=== PATIENT | female | born 1990 | race American Indian/Alaskan Native ===

== ENCOUNTER 2016-09-19 21:00 | Inpatient (IN) | payer MEDICAID, SELFPAY ==
[2016-09-19] MEDS ORDERED: Sodium Chloride 0.9% 1,000 ML IV ONE (22:06)
[2016-09-19 22:48] LABS: CHLORIDE,CL 86 mmol/L (101-111)
[2016-09-19 22:51] LABS: SODIUM,NA 118 mmol/L (135-145)
[2016-09-19] MEDS ORDERED: Potassium Chloride 10 MEQ in Premix Bag 1 BAG IV ONE (22:54)
[2016-09-19] MEDS ORDERED: Iopamidol 612 MG/ML 100 ML Bottle IVPUSH ONE (23:06)
--- NOTE | 2016-09-19 23:57 | EDM.PDOC ---
ED HPI GENERAL MEDICAL PROBLEM - General Chief Complaint: Drug or Alcohol Abuse Stated Complaint: AMB Time Seen by Provider: 09/19/16 21:10 Source of Information: Reports: EMS History Limitations: Reports: Altered Mental Status - History of Present Illness INITIAL COMMENTS - FREE TEXT/NARRATIVE: ED via [facility] from [facility] with confusion,hearing and smelling things, NVD. Facility questioned "heat stroke" as patient out walking around most of afternoon, Patient awake but offers not history. Minimal hx available from guardian or facility. Previous records note remote head injury. Facility records note OCD, psychosis and anxiety. - Related Data Allergies Allergy/AdvReac Type Severity Reaction Status Date / Time No Known Allergies Allergy Verified 09/19/16 21:04 Home Meds: Home Meds Clindamycin Phosphate 1 each TP BID 09/19/16 [History] Doxycycline [Vibramycin] 100 mg PO QAM 09/19/16 [History] FLUoxetine [PROzac] 10 mg PO DAILY 09/19/16 [History] FLUoxetine [PROzac] 20 mg PO DAILY 09/19/16 [History] Lurasidone [Latuda] 1 tab PO DAILY 09/19/16 [History] Melatonin 9 mg PO BEDTIME 09/19/16 [History] Multivitamin [Multivitamins] 1 each PO DAILY 09/19/16 [History] risperiDONE Microspheres [RisperiDAL Consta] 50 mg IM ASDIRECTED 09/19/16 [ History] Past Medical History HEENT History: Reports: Impaired Vision Psychiatric History: Reports: Anxiety - History Comment History Comment: learning disabilities Social & Family History - Family History Family Medical History: Unobtainable - Tobacco Use Smoking Status *Q: Unknown Ever Smoked Years of Tobacco use: 8 - Alcohol Use Days Per Week of Alcohol Use: 0 - Recreational Drug Use Recreational Drug Use: No ED ROS GENERAL - Review of Systems Review Of Systems: Unable To Obtain - Physical Exam Exam: See Below Exam Limited By: No Limitations General Appearance: Alert, Mild Distress Eye Exam: Bilateral Eye: PERRL Ears: Normal External Exam, Normal TMs Nose: Normal Inspection Throat/Mouth: Normal Inspection Head Exam: Atraumatic, Normocephalic Neck: Normal Inspection, Full Range of Motion Respiratory/Chest: No Respiratory Distress, Lungs Clear Cardiovascular: Normal Peripheral Pulses, Regular Rate, Rhythm GI/Abdominal: Normal Bowel Sounds, Soft, Tender (diffuse with palpation), Other (emesis clear liquid with few bloody mucus streaks) Neuro Exam (Abbreviated): Alert, Other (minimal verbal response, follow simple commands) Back Exam: Normal Inspection Extremities: Normal Inspection Psychiatric: Flat Affect Skin Exam: Warm, Dry, Intact, Normal Color Course - Vital Signs Last Recorded V/S: Last Vital Signs Temp 97.7 F 09/19/16 21:06 Pulse 82 09/19/16 21:06 Resp 18 09/19/16 21:06 BP 115/61 09/19/16 21:06 Pulse Ox 100 09/19/16 21:06 - Orders/Labs/Meds Orders: Active Orders 24 hr Category Date Time Status EKG 12 Lead [EKG Documentation Completion] [RC] URGENT Care 09/19/16 22:55 Active Labs: Laboratory Tests 09/19/16 09/19/16 09/19/16 Range/Units 22:10 22:10 22:10 WBC (5.0-10.0) 10^3/uL RBC (4.2-5.4) 10^6/uL Hgb (12.0-16.0) g/dL Hct (37.0-47.0) % MCV (80-100) fL MCH (27.0-34.0) pg MCHC (33.0-35.0) g/dL Plt Count (150-450) 10^3/uL Sodium (135-145) mmol/L Potassium (3.6-5.0) mmol/L Chloride (101-111) mmol/L Carbon Dioxide (21.0-31.0) mmol/L Anion Gap BUN (7-18) mg/dL Creatinine (0.6-1.3) mg/dL Est Cr Clr Drug Dosing Estimated GFR (MDRD) BUN/Creatinine Ratio Glucose (74-105) mg/dL Calcium (8.4-10.2) mg/dl Total Bilirubin (0.2-1.0) mg/dL AST (10-42) IU/L ALT (10-60) IU/L Alkaline Phosphatase (42-121) IU/L C-Reactive Protein (0.0-1.3) mg/dL Total Protein (6.7-8.2) g/dl Albumin (3.2-5.5) g/dl Globulin Albumin/Globulin Ratio Amylase (28-100) U/L Lipase (22-51) U/L Urine Color Yellow (YELLOW) Urine Appearance Clear (CLEAR) Urine pH 6.5 (5.0-9.0) Ur Specific [place] 1.010 (1.005-1.030) Urine Protein Negative (NEGATIVE) Urine Glucose (UA) Negative (NEGATIVE) Urine Ketones 40 H (NEGATIVE) Urine Occult Blood Trace-intact H (NEGATIVE) Urine Nitrite Negative (NEGATIVE) Urine Bilirubin Negative (NEGATIVE) Urine Urobilinogen 0.2 (0.2-1.0) mg/dL Ur Leukocyte Esterase Negative (NEGATIVE) Urine RBC 0-5 /HPF Urine WBC 0-5 (0-5/HPF) /HPF Ur Epithelial Cells Few /HPF Urine Bacteria Occasional (0-FEW/HPF) /HPF Urine HCG, Qual Negative Urine Opiates Screen Negative (NEGATIVE) Ur Oxycodone Screen Negative (NEGATIVE) Urine Methadone Screen Negative (NEGATIVE) Ur Barbiturates Screen Negative (NEGATIVE) U Tricyclic Antidepress Negative (NEGATIVE) Ur Phencyclidine Scrn Negative (NEGATIVE) Ur Amphetamine Screen Negative (NEGATIVE) U Methamphetamines Scrn Negative (NEGATIVE) Urine MDMA Screen Negative (NEGATIVE) U Benzodiazepines Scrn Negative (NEGATIVE) Urine Cocaine Screen Negative (NEGATIVE) U Marijuana (THC) Screen Negative (NEGATIVE) Ethyl Alcohol mg/dL 09/19/16 09/19/16 09/19/16 Range/Units 22:22 22:22 22:22 WBC 12.9 H (5.0-10.0) 10^3/uL RBC 3.87 L (4.2-5.4) 10^6/uL Hgb 11.9 L (12.0-16.0) g/dL Hct 34.0 L (37.0-47.0) % MCV 87.9 (80-100) fL MCH 30.7 (27.0-34.0) pg MCHC 35.0 (33.0-35.0) g/dL Plt Count 296 (150-450) 10^3/uL Sodium 118 L* (135-145) mmol/L Potassium 2.5 L (3.6-5.0) mmol/L Chloride 86 L (101-111) mmol/L Carbon Dioxide 20.0 L (21.0-31.0) mmol/L Anion Gap 14.5 BUN 5 L (7-18) mg/dL Creatinine 0.6 (0.6-1.3) mg/dL Est Cr Clr Drug Dosing TNP Estimated GFR (MDRD) > 60 BUN/Creatinine Ratio 8.33 Glucose 136 H (74-105) mg/dL Calcium 7.9 L (8.4-10.2) mg/dl Total Bilirubin 0.6 (0.2-1.0) mg/dL AST 22 (10-42) IU/L ALT 20 (10-60) IU/L Alkaline Phosphatase 96 (42-121) IU/L C-Reactive Protein 0.6 (0.0-1.3) mg/dL Total Protein 6.9 (6.7-8.2) g/dl Albumin 4.0 (3.2-5.5) g/dl Globulin 2.9 Albumin/Globulin Ratio 1.38 Amylase 36 (28-100) U/L Lipase 18 L (22-51) U/L Urine Color (YELLOW) Urine Appearance (CLEAR) Urine pH (5.0-9.0) Ur Specific [place] (1.005-1.030) Urine Protein (NEGATIVE) Urine Glucose (UA) (NEGATIVE) Urine Ketones (NEGATIVE) Urine Occult Blood (NEGATIVE) Urine Nitrite (NEGATIVE) Urine Bilirubin (NEGATIVE) Urine Urobilinogen (0.2-1.0) mg/dL Ur Leukocyte Esterase (NEGATIVE) Urine RBC /HPF Urine WBC (0-5/HPF) /HPF Ur Epithelial Cells /HPF Urine Bacteria (0-FEW/HPF) /HPF Urine HCG, Qual Urine Opiates Screen (NEGATIVE) Ur Oxycodone Screen (NEGATIVE) Urine Methadone Screen (NEGATIVE) Ur Barbiturates Screen (NEGATIVE) U Tricyclic Antidepress (NEGATIVE) Ur Phencyclidine Scrn (NEGATIVE) Ur Amphetamine Screen (NEGATIVE) U Methamphetamines Scrn (NEGATIVE) Urine MDMA Screen (NEGATIVE) U Benzodiazepines Scrn (NEGATIVE) Urine Cocaine Screen (NEGATIVE) U Marijuana (THC) Screen (NEGATIVE) Ethyl Alcohol mg/dL 09/19/ Range/Units 22:22 WBC (5.0-10.0) 10^3/uL RBC (4.2-5.4) 10^6/uL Hgb (12.0-16.0) g/dL Hct (37.0-47.0) % MCV (80-100) fL MCH (27.0-34.0) pg MCHC (33.0-35.0) g/dL Plt Count (150-450) 10^3/uL Sodium (135-145) mmol/L Potassium (3.6-5.0) mmol/L Chloride (101-111) mmol/L Carbon Dioxide (21.0-31.0) mmol/L Anion Gap BUN (7-18) mg/dL Creatinine (0.6-1.3) mg/dL Est Cr Clr Drug Dosing Estimated GFR (MDRD) BUN/Creatinine Ratio Glucose (74-105) mg/dL Calcium (8.4-10.2) mg/dl Total Bilirubin (0.2-1.0) mg/dL AST (10-42) IU/L ALT (10-60) IU/L Alkaline Phosphatase (42-121) IU/L C-Reactive Protein (0.0-1.3) mg/dL Total Protein (6.7-8.2) g/dl Albumin (3.2-5.5) g/dl Globulin Albumin/Globulin Ratio Amylase (28-100) U/L Lipase (22-51) U/L Urine Color (YELLOW) Urine Appearance (CLEAR) Urine pH (5.0-9.0) Ur Specific [place] (1.005-1.030) Urine Protein (NEGATIVE) Urine Glucose (UA) (NEGATIVE) Urine Ketones (NEGATIVE) Urine Occult Blood (NEGATIVE) Urine Nitrite (NEGATIVE) Urine Bilirubin (NEGATIVE) Urine Urobilinogen (0.2-1.0) mg/dL Ur Leukocyte Esterase (NEGATIVE) Urine RBC /HPF Urine WBC (0-5/HPF) /HPF Ur Epithelial Cells /HPF Urine Bacteria (0-FEW/HPF) /HPF Urine HCG, Qual Urine Opiates Screen (NEGATIVE) Ur Oxycodone Screen (NEGATIVE) Urine Methadone Screen (NEGATIVE) Ur Barbiturates Screen (NEGATIVE) U Tricyclic Antidepress (NEGATIVE) Ur Phencyclidine Scrn (NEGATIVE) Ur Amphetamine Screen (NEGATIVE) U Methamphetamines Scrn (NEGATIVE) Urine MDMA Screen (NEGATIVE) U Benzodiazepines Scrn (NEGATIVE) Urine Cocaine Screen (NEGATIVE) U Marijuana (THC) Screen (NEGATIVE) Ethyl Alcohol < 5 mg/dL Meds: Medications Discontinued Medications Generic Name Dose Route Start Last Admin Trade Name Freq PRN Reason Stop Dose Admin Sodium Chloride 1,000 mls @ 999 mls/hr 09/19/16 22:06 09/19/16 22:29 Normal Saline IV 09/19/16 23:06 999 mls/hr .BOLUS ONE Administration Potassium Chloride 10 meq/ 100 mls @ 100 mls/hr 09/19/16 22:54 09/19/16 23:12 Premix IV 09/19/16 23:53 100 mls/hr ONETIME ONE Administration Iopamidol 100 ml 09/19/16 23:06 09/19/16 23:41 Isovue-300 (61%) IVPUSH 09/19/16 23:07 100 ml ONETIME ONE Administration - Radiology Interpretation Free Text/Narrative:: CT abdomen and head negative - Re-Assessments/Exams Free Text/Narrative Re-Assessment/Exam: 09/20/16 00:53 Dr. Hillman admit for further eval Departure - Departure Time of Disposition: 01:07 Disposition: Admitted As Inpatient 66 Condition: fair, undetermined Clinical Impression: Hyponatremia, Hypokalemia, History of mental problems, Hx of psychosis Altered mental status Qualifiers: Altered mental status type: disorientation Qualified Code(s): R41.0 - Disorientation, unspecified - Discharge Information Forms: ED Department Discharge - My Orders Last 24 Hours: My Active Orders 09/19/16 22:55 EKG 12 Lead [EKG Documentation Completion] [RC] URGENT - Assessment/Plan Last 24 Hours: My Active Orders 09/19/16 22:55 EKG 12 Lead [EKG Documentation Completion] [RC] URGENT
[2016-09-20] MEDS ORDERED: Potassium Chloride 10 MEQ in Premix Bag 1 BAG IV ONE (00:46)
[2016-09-20] MEDS ORDERED: Zolpidem 5 MG Tab PO PRN (01:37)
[2016-09-20] MEDS ORDERED: Pantoprazole 40 MG Vial IVPUSH ONE (01:37)
[2016-09-20] MEDS ORDERED: Ondansetron 4 MG/2 ML SDV IVPUSH PRN (01:37)
[2016-09-20] MEDS ORDERED: Morphine 2 MG/ML Syringe IVPUSH PRN (01:37)
[2016-09-20] MEDS ORDERED: LORazepam 2 MG/ML Syringe IVPUSH PRN ×2 (01:37→19:56)
[2016-09-20] MEDS ORDERED: Promethazine 25 MG/ML SDV IM PRN (01:37)
[2016-09-20] MEDS: Sodium Chloride 0.9% 1,000 ML IV SCH ×3 (02:34→17:55)
[2016-09-20] MEDS: Potassium Chloride 10 MEQ in Premix Bag 1 BAG IV SCH ×4 (02:34→05:59)
[2016-09-20 07:02] LABS: CHLORIDE,CL 106 mmol/L (101-111); SODIUM,NA 134 mmol/L (135-145)
[2016-09-20] MEDS ORDERED: Sodium Chloride 0.9% 1,000 ML IV ONE (10:37)
[2016-09-20] MEDS: FLUoxetine 10 MG Cap PO SCH ×2 (11:20)
[2016-09-20] MEDS: CLINDAMYCIN PHOSPHATE TOP SCH ×2 (11:21→21:14)
[2016-09-20] MEDS: Doxycycline 100 MG Cap PO SCH (11:21)
[2016-09-20] MEDS: Enoxaparin 40 MG/0.4 ML Syringe SUBCUT SCH (11:21)
[2016-09-20] MEDS: Acetaminophen 325 MG Tab PO PRN ×2 (11:27→18:09)
--- NOTE | 2016-09-20 11:27 | PCM.HP ---
H&P History of Present Illness - General Date of Service: 09/20/16 Admit Problem/Dx: Admission Diagnosis/Problem Admission Diagnosis/Problem Vomiting Source of Information: Patient History Limitations: Reports: Altered Mental Status, Other (learning disability) - History of Present Illness Initial Comments - Free Text/Narative: 26-year-old female with past medical history of psychosis, drug abuse (huffing air dust, hair spray), obsessive compulsive disorder, anxiety, rosacea who lives in a mental disability facilitate was brought by ambulance to the emergency room for having lightheadedness, nausea, vomiting, diarrhea, and collapse yesterday evening. Patient is a poor historian and was not remembering what happened which according to her facility staff and guardian is not unusual for her not to remember things. history was collected from Guardian Aby and mental disability staff Colby. Aby stated that she was with the patient yesterday afternoon for about one hour. at that time patient was in her usual health status and about 4 PM patient stated that she was not feeling well. Later , Annalisa was informed by staff the patient was listening to her music loudly and was asked patient states that she was hearing loud voices over and helped her, afterwards patient start vomiting and collapsed but did not lose consciousness. Aby did not notice that patient was coughing during the day or having any unusual symptoms. Colby stated that patient was hearing some voices and head over and helps and was smelling something but at the same time she was having stool incontinence. Around 8 PM, Patient had multiple vomiting, multiple watery diarrhea, was feeling weak and increased hallucinations. the denied unilateral weakness, fever, chills but reported patient was in her winter coat throughout the day. comprehensive review of system was not obtainable because the patient altered mental status and learning disability however she denied first breath, chest pain, or stomach pain. in the emergency room her WBC were 12.9. Hemoglobin 11.9. Sodium 118. Potassium 2.5. Carbon dioxide is 20. BUN 5. Creatinine 0.6. Doesn't 7.9. Liver enzymes normal. UA unremarkable. urine drug toxicity and alcohol level are negative. Chest x-ray is unremarkable. CT abdomen and pelvis did not show acute process. She was given 1 L of normal saline as a bolus in addition to one dose of IV potassium and admit to the hospital. on admission normal saline infusion and potassium chloride infusion continued. Stool culture and C. difficile tests were ordered. Patient was admitted very early in the morning and later in the morning she felt better and she remembered that yesterday she was feeling weak and she was dizzy but she did not remember that she was hearing voices trying to help her, having vomiting and diarrhea and she denies hearing voices tried to tell her to hurt herself or others, she denies thoughts or plan to hurt herself or others or any other symptoms. - Related Data Allergies/Adverse Reactions: Allergies Allergy/AdvReac Type Severity Reaction Status Date / Time No Known Allergies Allergy Verified 09/19/16 21:04 Home Medications: Home Meds Clindamycin Phosphate 1 each TP BID 09/19/16 [History] Doxycycline [Vibramycin] 100 mg PO QAM 09/19/16 [History] FLUoxetine [PROzac] 10 mg PO DAILY 09/19/16 [History] FLUoxetine [PROzac] 20 mg PO DAILY 09/19/16 [History] Lurasidone [Latuda] 40 mg PO 1700 09/19/16 [History] Melatonin 9 mg PO BEDTIME 09/19/16 [History] Multivitamin [Multivitamins] 1 each PO DAILY 09/19/16 [History] risperiDONE Microspheres [RisperiDAL Consta] 50 mg IM Q14D 09/19/16 [History] Acetaminophen 650 mg PO Q6HR PRN 09/20/16 [History] Calcium Carbonate [Tums Extra Strength] 2 - 4 tab PO Q4H PRN 09/20/16 [History] Ibuprofen 400 mg PO Q6HR PRN 09/20/16 [History] Mag Hydrox/Al Hydrox/Simeth [Liquid Antacid Suspension] 2 - 4 tsp PO Q4H PRN [History] Magnesium Hydroxide [Milk of Magnesia] 30 - 60 ml PO DAILY PRN 09/20/16 [History ] Menthol [[place]] 1 lozenge PO Q1H PRN 09/20/16 [History] Neomycin [place]/Bacitrac Zn/Poly [Neosporin Ointment] 1 applic TOP BID PRN 09/20/16 [History] Past Medical History HEENT History: Reports: Impaired Vision Other HEENT History: wears glasses Neurological History: Reports: Other (See Below) Other Neuro History: confusion, slow speech Psychiatric History: Reports: Anxiety - History Comment History Comment: learning disabilities Social & Family History - Family History Family Medical History: Unobtainable - Tobacco Use Smoking Status *Q: Unknown Ever Smoked Years of Tobacco use: 8 Packs/Tins Daily: 0.5 - Caffeine Use Caffeine Use: Reports: Coffee - Alcohol Use Days Per Week of Alcohol Use: 0 - Recreational Drug Use Recreational Drug Use: No H&P Review of Systems - Review of Systems: Review Of Systems: Unable To Obtain General: Denies: Fever Exam - Exam Exam: See Below - Vital Signs Vital Signs: Last Vital Signs Temp 37.1 C 09/20/16 07:00 Pulse 88 09/20/16 10:00 Resp 20 09/20/16 10:00 BP 87/42 L 09/20/16 10:00 Pulse Ox 99 09/20/16 10:00 Weight: 103.51 kg - Exam General: Alert, Oriented (to person and place but not to time), Cooperative. No : Moderate Distress, Severe Distress, Sedated, Lethargic, Obtunded HEENT: Conjunctiva Clear, EACs Clear, EOMI, Hearing Intact, Mucosa Moist & [place] , Nares Patent, Normal Nasal Septum, Posterior Pharynx Clear, Pupils Equal, Pupils Reactive, TMs Clear Neck: Supple, Trachea Midline Lungs: Clear to Auscultation, Normal Respiratory Effort. No: Decreased Breath Sounds, Crackles, Rales, Rhonchi, Rub, Stridor, Wheezing Cardiovascular: Regular Rate, Regular Rhythm Abdomen: Normal Bowel Sounds, Soft, Pelvis Stable. No: Organomegaly, Peritoneal Signs, Distention, Guarding, Rigidity, Rebound, Tenderness, Absent Bowel Sounds, Hypoactive Bowel Sounds, Tympanic Bowel Sounds, Hepatomegaly, Splenomegaly, Hernia, McBurney's Sign, Mercedes's Sign (Female) Exam: Deferred Rectal (Female) Exam: Deferred Back Exam: Normal Inspection, Full Range of Motion Extremities: Normal Inspection, Normal Pulses. No: Clubbing, Cyanosis, Calf Tenderness, Edema, Increased Warmth Skin: Warm, Dry, Intact Neurological: Cranial Nerves Intact, Reflexes Equal Bilateral, Strength Equal Bilateral, Sensation Intact. No: Focal Deficit, Clonus Neuro Extensive - Mental Status: Alert, Oriented x3, Disorientation to Time, Slow Response to Commands Neuro Extensive - Motor, Sensory, Reflexes: CN II-XII Intact Psychiatric: Alert, Labile Mood. No: Agitated, Suicidal Ideation, Homicidal Ideation, Hallucinations, Withdrawal Symptoms - Patient Data Lab Results last 24 hrs: Laboratory Results - last 24 hr 09/20/16 09/20/16 Range/Units 05:57 05:57 WBC 9.6 (5.0-10.0) 10^3/uL RBC 4.24 (4.2-5.4) 10^6/uL Hgb 12.9 (12.0-16.0) g/dL Hct 37.4 (37.0-47.0) % MCV 88.2 (80-100) fL MCH 30.4 (27.0-34.0) pg MCHC 34.5 (33.0-35.0) g/dL Plt Count 349 (150-450) 10^3/uL Neut % (Auto) 79.4 H (42.2-75.2) % Lymph % (Auto) 13.3 L (20.5-50.1) % [place] % (Auto) 7.1 (2-8) % Eos % (Auto) 0.1 L (1.0-3.0) % Baso % (Auto) 0.1 (0.0-1.0) % Sodium 134 L (135-145) mmol/L Potassium 4.5 (3.6-5.0) mmol/L Chloride 106 (101-111) mmol/L Carbon Dioxide 23.0 (21.0-31.0) mmol/L Anion Gap 9.5 BUN 4 L (7-18) mg/dL Creatinine 0.5 L (0.6-1.3) mg/dL Est Cr Clr Drug Dosing 159.62 mL/min Estimated GFR (MDRD) > 60 BUN/Creatinine Ratio 8.00 Glucose 106 H (74-105) mg/dL Calcium 8.7 (8.4-10.2) mg/dl Phosphorus 3.7 (2.5-4.6) mg/dL Magnesium 1.9 (1.8-2.5) mg/dL Total Bilirubin 0.5 (0.2-1.0) mg/dL AST 19 (10-42) IU/L ALT 19 (10-60) IU/L Alkaline Phosphatase 102 (42-121) IU/L Troponin I < 0.02 (0.00-0.02) ng/ml Total Protein 7.0 (6.7-8.2) g/dl Albumin 3.9 (3.2-5.5) g/dl Globulin 3.1 Albumin/Globulin Ratio 1.26 Result Diagrams: 09/20/16 05:57 09/20/16 05:57 Mukesh Results last 24 hrs: Microbiology 09/20/16 02:18 Anaerobic Blood Culture - Final Blood - Venous - Lab Draw *Q Meaningful Use (ADM) - VTE *Q VTE Criteria *Q: - Stroke *Q Stroke Criteria *Q: - AMI *Q AMI Criteria *Q: - Problem List (1) Acute encephalopathy SNOMED Code(s): 0534340 ICD Code: G93.40 - ENCEPHALOPATHY, UNSPECIFIED Status: Acute Current Visit: Yes (2) Acute hypernatremia SNOMED Code(s): 6326188 ICD Code: E87.0 - HYPEROSMOLALITY AND HYPERNATREMIA Status: Acute Current Visit: Yes (3) Hypokalemia SNOMED Code(s): 72363910 ICD Code: E87.6 - HYPOKALEMIA Status: Acute Current Visit: Yes (4) Gastroenteritis SNOMED Code(s): 98589594 ICD Code: K52.9 - NONINFECTIVE GASTROENTERITIS AND COLITIS, UNSPECIFIED Status: Acute Current Visit: Yes (5) Dehydration SNOMED Code(s): 65720220 ICD Code: E86.0 - DEHYDRATION Status: Acute Current Visit: Yes (6) Hypotension SNOMED Code(s): 48861714 ICD Code: I95.9 - HYPOTENSION, UNSPECIFIED Status: Acute Current Visit: Yes (7) Auditory hallucinations SNOMED Code(s): 00576753 ICD Code: R44.0 - AUDITORY HALLUCINATIONS Status: Acute Current Visit: Yes Problem List Initiated/Reviewed/Updated: Yes Orders Last 24hrs: Active Orders 24 hr Category Date Time Status Neuro Check [RC] Q4H Care 09/20/16 01:43 Active BMP [BASIC METABOLIC PANEL,BMP] [CHEM] AM Lab 09/21/16 05:11 Ordered C DIFFICILE TOXIN BY PCR [MREF] Stat Lab 09/20/16 01:46 Uncollected CBC WITH AUTO DIFF [HEME] AM Lab 09/21/16 05:11 Ordered STOOL CULTURE/SHIGA TOXIN [MREF] Stat Lab 09/20/16 01:45 Uncollected Doxycycline [Vibramycin] Med 09/20/16 09:00 Active 100 mg PO QAM FLUoxetine [PROzac] Med 09/20/16 09:00 Active 10 mg PO DAILY FLUoxetine [PROzac] Med 09/20/16 09:00 Active 20 mg PO DAILY Nicotine [Habitrol] Med 09/20/16 10:45 Active 21 mg TRDERM DAILY Patient's Own Medication [Ptom] Med 09/27/16 09:00 Active 0 each IM Q14D@0900 Patient's Own Medication [Ptom] Med 09/20/16 21:00 Active 0 each PO BEDTIME Patient's Own Medication [Ptom] Med 09/20/16 21:00 Active 1 each PO BEDTIME Patient's Own Medication [Ptom] Med 09/20/16 09:00 Active 1 each TOP BID Sodium Chloride 0.9% [Normal Saline] 1,000 ml Med 09/20/16 10:37 Active IV .BOLUS Medication Orders Acetaminophen (Tylenol) 650 mg PO Q4H PRN PRN Reason: Pain (Mild 1-3)/fever Doxycycline Hyclate (Vibramycin) 100 mg PO QAM FAHAD Enoxaparin Sodium (Lovenox) 40 mg SUBCUT DAILY [facility] Fluoxetine HCl (Prozac) 20 mg PO DAILY FAHAD Fluoxetine HCl (Prozac) 10 mg PO DAILY [facility] Sodium Chloride (Normal Saline) 1,000 mls @ 150 mls/hr IV ASDIRECTED [facility] Last Admin: 09/20/16 11:09 Dose: 150 mls/hr Infusion: 09/20/16 09:15 Dose: 150 mls/hr Admin: 09/20/16 02:34 Dose: 150 mls/hr Sodium Chloride (Normal Saline) 1,000 mls @ 999 mls/hr IV .BOLUS ONE Stop: 09/20/16 11:37 Last Admin: 09/20/16 11:08 Dose: 999 mls/hr Lorazepam (Ativan) 1 mg IVPUSH Q6H PRN PRN Reason: anxiety/Nausea/Vomiting Morphine Sulfate (Morphine) 2 mg IVPUSH Q2H PRN PRN Reason: Pain (severe 7-10) Nicotine (Habitrol) 21 mg TRDERM DAILY [facility] Ondansetron HCl (Zofran) 4 mg IVPUSH Q6H PRN PRN Reason: Nausea/Vomiting Clindamycin Phosphate Top Swab *Pt's Own Med 1 each TOP BID FAHAD Melatonin [Melatonin ] 3 MgPt's Own Med 0 each PO BEDTIME FAHAD Lurasidone [Latuda] 40mg Pt's Own Med 1 each PO BEDTIME FAHAD Risperidone Microspheres [ Risperidal Consta] 50 MgPt's Own Med 0 each IM Q14D@0900 FAHAD Promethazine HCl (Phenergan) 6.25 mg IM Q6H PRN PRN Reason: Nausea/Vomiting Zolpidem Tartrate (Ambien) 5 mg PO BEDTIME PRN PRN Reason: Sleep Assessment/Plan Comment:: Systemic inflammatory response syndrome most like a from dehydration or could be from heat exhaustion Continue IV fluid infusion -Awaiting results from blood cultures, stool cultures, urine cultures, C. difficile Acute hyponatremia improved after she was started on IV fluid infusion of normal saline and kept n.p.o. -Continue IV fluid infusion of normal saline at 150 cc per hour Acute gastroenteritis -Patient did not have any vomiting or diarrhea since admission -Continue IV fluid infusion -Advance diet as tolerated starting with clear liquids Hypokalemia Potassium on admission is 2.5 Replaced by IV potassium chloride -recheck potassium level tomorrow Auditory hallucination with history of psychosis continue home medication of Risperdal and Lurasidone History of rosacea Continue doxycycline Learning disability and mentally challenging patient Continue her anti-psychosis medications and provide suitable environment guardian Aby want patient to be DNR/DNI Lovenox for DVT prophylaxis
[2016-09-20] MEDS: Nicotine 21 MG/24 Hr Patch TRDERM SCH (11:29)
[2016-09-20] MEDS ORDERED: Benzocaine/Cetylpyridinium/Menthol Lozenge MUCMEM PRN (11:36)
[2016-09-20] MEDS ORDERED: Bacitracin/Neomycin/Polymyxin B Oint 28.4 GM Tube TOP PRN (11:36)
--- NOTE | 2016-09-20 14:52 | EKG ---
09/19/2016 - SIS OATES I reviewed the EKG and agree with the machine's reading. [facility] /[id number]
[2016-09-20] MEDS: LURASIDONE 40 MG PO SCH (21:13)
[2016-09-20] MEDS: MELATONIN 3 MG PO SCH (21:13)
[2016-09-21] MEDS: Sodium Chloride 0.9% 1,000 ML IV SCH ×2 (00:22→06:56)
[2016-09-21] MEDS: Acetaminophen 325 MG Tab PO PRN ×3 (05:07→17:46)
[2016-09-21 07:03] LABS: CHLORIDE,CL 110 mmol/L (101-111); SODIUM,NA 136 mmol/L (135-145)
[2016-09-21] MEDS ORDERED: Potassium Chloride 10 MEQ Tab.ER PO ONE (08:00)
[2016-09-21] MEDS: Multivitamins,Therapeutic Tab PO SCH (09:12)
[2016-09-21] MEDS: FLUoxetine 10 MG Cap PO SCH ×2 (09:12)
[2016-09-21] MEDS: CLINDAMYCIN PHOSPHATE TOP SCH ×2 (09:13→20:22)
[2016-09-21] MEDS: Doxycycline 100 MG Cap PO SCH (09:13)
[2016-09-21] MEDS: Enoxaparin 40 MG/0.4 ML Syringe SUBCUT SCH (09:15)
[2016-09-21] MEDS: Nicotine 21 MG/24 Hr Patch TRDERM SCH (09:17)
--- NOTE | 2016-09-21 10:05 | PCM.PN ---
- General Info Date of Service: 09/21/16 Admission Dx/Problem (Free Text): Admission Diagnosis/Problem Admission Diagnosis/Problem Vomiting Subjective Update: patient is feeling better. Her diet was advanced yesterday. This morning she had regular breakfast and she tolerated that well. She denies diarrhea. She denies fever, chills, shortness breath, chest pain, abdominal pain, urinary symptoms, or any other symptoms. - Review of Systems General: Reports: No Symptoms HEENT: Reports: no symptoms Pulmonary: Reports: no symptoms - Patient Data Vitals - most recent: Last Vital Signs Temp 36.4 C 09/21/16 07:00 Pulse 67 09/21/16 07:00 Resp 20 09/21/16 07:00 BP 104/43 L 09/21/16 07:00 Pulse Ox 99 09/21/16 07:00 Weight - most recent: 99.796 kg I&O - last 24 hours: Intake & Output 09/20/16 09/21/16 09/21/16 22:59 06:59 14:59 Intake Total 5414 2925 Output Total 2400 1100 Balance 3014 1825 Lab Results last 24 hrs: Laboratory Results - last 24 hr 09/21/16 09/21/16 Range/Units 05:57 05:57 WBC 8.5 (5.0-10.0) 10^3/uL RBC 3.70 L (4.2-5.4) 10^6/uL Hgb 11.1 L (12.0-16.0) g/dL Hct 34.1 L (37.0-47.0) % MCV 92.2 (80-100) fL MCH 30.0 (27.0-34.0) pg MCHC 32.6 L (33.0-35.0) g/dL Plt Count 320 (150-450) 10^3/uL Neut % (Auto) 42.1 L (42.2-75.2) % Lymph % (Auto) 47.2 (20.5-50.1) % Young % (Auto) 9.0 H (2-8) % Eos % (Auto) 1.5 (1.0-3.0) % Baso % (Auto) 0.2 (0.0-1.0) % Sodium 136 (135-145) mmol/L Potassium 3.5 L (3.6-5.0) mmol/L Chloride 110 (101-111) mmol/L Carbon Dioxide 23.0 (21.0-31.0) mmol/L Anion Gap 6.5 BUN 4 L (7-18) mg/dL Creatinine 0.4 L (0.6-1.3) mg/dL Est Cr Clr Drug Dosing 199.52 mL/min Estimated GFR (MDRD) > 60 Glucose 79 (74-105) mg/dL Calcium 8.3 L (8.4-10.2) mg/dl Mukesh Results last 24 hrs: Microbiology 09/20/16 19:30 Stool Culture - Preliminary Stool / Feces - Stool, Formed NORMAL ENTERIC AMANDA. NO SALMONELLA, SHIGELLA , CAMPYLOBACTER OR E.COLI O157 ISOLATED. 09/20/16 02:15 Aerobic Blood Culture - Preliminary Blood - Venous NO GROWTH AFTER 1 DAY Anaerobic Blood Culture - Preliminary NO GROWTH AFTER 1 DAY 09/20/16 02:18 Aerobic Blood Culture - Preliminary Blood - Venous - Lab Draw NO GROWTH AFTER 1 DAY Anaerobic Blood Culture - Final Med Orders - Current: Current Medications Acetaminophen (Tylenol) 650 mg PO Q4H PRN PRN Reason: Pain (Mild 1-3)/fever Last Admin: 09/21/16 05:07 Dose: 650 mg Benzocaine/Menthol (Cepacol Sore Throat) 1 lozenge MUCMEM Q1H PRN PRN Reason: Cough Doxycycline Hyclate (Vibramycin) 100 mg PO QAM [facility] Last Admin: 09/21/16 09:13 Dose: 100 mg Enoxaparin Sodium (Lovenox) 40 mg SUBCUT DAILY [facility] Last Admin: 09/21/16 09:15 Dose: 40 mg Fluoxetine HCl (Prozac) 20 mg PO DAILY [facility] Last Admin: 09/21/16 09:12 Dose: 20 mg Fluoxetine HCl (Prozac) 10 mg PO DAILY [facility] Last Admin: 09/21/16 09:12 Dose: 10 mg Sodium Chloride (Normal Saline) 1,000 mls @ 150 mls/hr IV ASDIRECTED [facility] Last Infusion: 09/21/16 09:50 Dose: 150 mls/hr Lorazepam (Ativan) 0.5 mg IVPUSH Q6H PRN PRN Reason: anxiety/Nausea/Vomiting Multivitamins (Thera) 1 each PO DAILY [facility] Last Admin: 09/21/16 09:12 Dose: 1 each Neomycin/Polymyxin/Bacitracin (Triple Antibiotic Oint) 0 gm TOP BID PRN PRN Reason: Wound Care Nicotine (Habitrol) 21 mg TRDERM DAILY [facility] Last Admin: 09/21/16 09:17 Dose: 21 mg Ondansetron HCl (Zofran) 4 mg IVPUSH Q6H PRN PRN Reason: Nausea/Vomiting Clindamycin Phosphate Top Swab *Pt's Own Med 1 each TOP BID [facility] Last Admin: 09/21/16 09:13 Dose: 1 each Melatonin [Melatonin ] 3 MgPt's Own Med 0 each PO BEDTIME [facility] Last Admin: 09/20/16 21:13 Dose: 1 each Lurasidone [Latuda] 40mg Pt's Own Med 1 each PO BEDTIME [facility] Last Admin: 09/20/16 21:13 Dose: 1 each Risperidone Microspheres [ Risperidal Consta] 50 MgPt's Own Med 0 each IM Q14D@0900 [facility] Promethazine HCl (Phenergan) 6.25 mg IM Q6H PRN PRN Reason: Nausea/Vomiting Zolpidem Tartrate (Ambien) 5 mg PO BEDTIME PRN PRN Reason: Sleep Discontinued Medications Sodium Chloride (Normal Saline) 1,000 mls @ 999 mls/hr IV .BOLUS ONE Stop: 09/19/16 23:06 Last Admin: 09/19/16 22:29 Dose: 999 mls/hr Potassium Chloride 10 meq/ (Premix) 100 mls @ 100 mls/hr IV ONETIME ONE Stop: 09/19/16 23:53 Last Admin: 09/19/16 23:12 Dose: 100 mls/hr Potassium Chloride 10 meq/ (Premix) 100 mls @ 100 mls/hr IV ONETIME ONE Stop: 09/20/16 01:45 Last Infusion: 09/20/16 02:33 Dose: Infused Potassium Chloride 10 meq/ (Premix) 100 mls @ 100 mls/hr IV Q1H [facility] Stop: 09/20/16 05:44 Last Admin: 09/20/16 05:59 Dose: Not Given Sodium Chloride (Normal Saline) 1,000 mls @ 999 mls/hr IV .BOLUS ONE Stop: 09/20/16 11:37 Last Infusion: 09/20/16 11:18 Dose: Infused Iopamidol (Isovue-300 (61%)) 100 ml IVPUSH ONETIME ONE Stop: 09/19/16 23:07 Last Admin: 09/19/16 23:41 Dose: 100 ml Lorazepam (Ativan) 1 mg IVPUSH Q6H PRN PRN Reason: anxiety/Nausea/Vomiting Morphine Sulfate (Morphine) 2 mg IVPUSH Q2H PRN PRN Reason: Pain (severe 7-10) Pantoprazole Sodium (Protonix Iv) 40 mg IVPUSH ONETIME ONE Stop: 09/20/16 01:38 Last Admin: 09/20/16 02:33 Dose: 40 mg Potassium Chloride (Klor-Con 10) 40 meq PO ONETIME ONE Stop: 09/21/16 08:01 Last Admin: 09/21/16 09:14 Dose: 40 meq - Exam General: alert, oriented, cooperative, no acute distress. No: mild distress, moderate distress, severe distress, sedated, lethargic, obtunded HEENT: Pupils equal, Pupils reactive, EOMI, Mucous membr. moist/pink Neck: supple, trachea midline, no JVD Lungs: Clear to auscultation, Normal respiratory effort Cardiovascular: Regular Rate, Regular Rhythm Abdomen: bowel sounds present, soft, no tenderness, no distension (Female) Exam: Deferred Back Exam: Normal Inspection, Full Range of Motion Extremities: no edema, normal pulses, no tenderness/swelling, no clubbing, no cyanosis, no calf tenderness Skin: warm, dry, intact Neurological: no new focal deficit Psy/Mental Status: alert, normal affect, normal mood - Problem List & Annotations (1) Acute encephalopathy SNOMED Code(s): 7372047 Code(s): G93.40 - ENCEPHALOPATHY, UNSPECIFIED Status: Acute Current Visit : Yes (2) Acute hypernatremia SNOMED Code(s): 8353594 Code(s): E87.0 - HYPEROSMOLALITY AND HYPERNATREMIA Status: Acute Current Visit: Yes (3) Hypokalemia SNOMED Code(s): 43291172 Code(s): E87.6 - HYPOKALEMIA Status: Acute Current Visit: Yes (4) Gastroenteritis SNOMED Code(s): 82831557 Code(s): K52.9 - NONINFECTIVE GASTROENTERITIS AND COLITIS, UNSPECIFIED Status: Acute Current Visit: Yes (5) Dehydration SNOMED Code(s): 85352620 Code(s): E86.0 - DEHYDRATION Status: Acute Current Visit: Yes (6) Hypotension SNOMED Code(s): 56586997 Code(s): I95.9 - HYPOTENSION, UNSPECIFIED Status: Acute Current Visit: Yes (7) Auditory hallucinations SNOMED Code(s): 82907234 Code(s): R44.0 - AUDITORY HALLUCINATIONS Status: Acute Current Visit: Yes - Problem List Review Problem List Initiated/Reviewed/Updated: Yes - My Orders Last 24 Hours: My Active Orders 09/20/16 09:00 Doxycycline [Vibramycin] 100 mg PO QAM FLUoxetine [PROzac] 10 mg PO DAILY FLUoxetine [PROzac] 20 mg PO DAILY Patient's Own Medication [Ptom] 1 each TOP BID 09/20/16 10:45 Nicotine [Habitrol] 21 mg TRDERM DAILY 09/20/16 11:36 Bacitracin/Neomycin/Polymyxin [Triple Antibiotic Oint] 0 gm TOP BID PRN Benzocaine/Cetylpyrd/Menthol [Cepacol Sore Throat] 1 lozenge MUCMEM Q1H PRN 09/20/16 19:30 C DIFFICILE TOXIN BY PCR [MREF] Stat CULTURE STOOL [RM] Routine 09/20/16 19:35 SHIGA TOXIN 1 & 2 [MREF] Routine 09/20/16 19:56 LORazepam [Ativan] 0.5 mg IVPUSH Q6H PRN 09/20/16 21:00 Patient's Own Medication [Ptom] 0 each PO BEDTIME Patient's Own Medication [Ptom] 1 each PO BEDTIME 09/20/16 Lunch Advance Diet Instructions [DIET] 09/21/16 09:00 Multivitamins,Therapeutic [Thera] 1 each PO DAILY 09/22/16 05:11 BASIC METABOLIC PANEL,BMP [CHEM] AM CBC WITH AUTO DIFF [HEME] AM 09/27/16 09:00 Patient's Own Medication [Ptom] 0 each IM Q14D@0900 - Plan Plan:: Systemic inflammatory response syndrome most like from dehydration or could be from heat exhaustion can stop IV fluid infusion today stool cultures, negative -Awaiting results from blood cultures, urine cultures, C. difficile Acute hyponatremia resolved improved after she was started on IV fluid infusion of normal saline and kept n.p.o. can stop the IV fluid infusion and encourage oral intake is limited Acute gastroenteritis -Patient did not have any vomiting or diarrhea since admission -stop IV fluid infusion -Advance diet as tolerated low blood pressure not sure whether the baseline low blood pressure or not. She denies change in Risperdal recently. She started Luradisone last May Hypokalemia Potassium on admission is 2.5 Replaced by IV potassium chloride -recheck potassium level tomorrow Auditory hallucination with history of psychosis continue home medication of Risperdal and Lurasidone History of rosacea Continue doxycycline Learning disability and mentally challenging patient Continue her anti-psychosis medications and provide suitable environment guardian Aby want patient to be DNR/DNI Lovenox for DVT prophylaxis
[2016-09-21] MEDS: LURASIDONE 40 MG PO SCH (20:20)
[2016-09-21] MEDS: MELATONIN 3 MG PO SCH (20:21)
[2016-09-22 07:03] LABS: CHLORIDE,CL 105 mmol/L (101-111); SODIUM,NA 136 mmol/L (135-145)
[2016-09-22] MEDS: Nicotine 21 MG/24 Hr Patch TRDERM SCH (09:28)
[2016-09-22] MEDS: Doxycycline 100 MG Cap PO SCH (09:29)
[2016-09-22] MEDS: Multivitamins,Therapeutic Tab PO SCH (09:29)
[2016-09-22] MEDS: Enoxaparin 40 MG/0.4 ML Syringe SUBCUT SCH (09:29)
[2016-09-22] MEDS: FLUoxetine 10 MG Cap PO SCH ×2 (09:30)
[2016-09-22] MEDS: CLINDAMYCIN PHOSPHATE TOP SCH (09:33)
[2016-09-22 11:16] VITALS: BP 92/40
--- NOTE | 2016-09-23 05:06 | DISCH ---
ADMITTING DIAGNOSES: 1. Acute gastroenteritis. 2. Acute hyponatremia. 3. Acute hypokalemia. 4. Systemic inflammatory response syndrome. 5. Auditory hallucinations with history of psychosis. DISCHARGE DIAGNOSES: 1. Systemic inflammatory response syndrome resulting from acute dehydration from acute gastroenteritis. 2. Acute hyponatremia, resolved. 3. Acute hypokalemia, resolved. 4. Acute psychosis, resolved. HISTORY OF PRESENT ILLNESS: Ms. Lebron Santana is a 26-year-old female with medical history significant for psychosis, history of drug abuse, in the past obsessive-compulsive disorder, anxiety, rosacea living in a mental disability facility was brought into the hospital after she had profuse diarrhea, nausea, vomiting, consistent with acute gastroenteritis. She was noted to have acute hyponatremia with sodium of 118 at the time of admission, and potassium of 2.5 with hypokalemia. She was treated with IV normal saline and after which her sodium has improved to 136 and potassium to 3.9, at the time of discharge. She remained hemodynamically stable on this admission. She was noted to have possible systemic inflammatory response at the time of admission, which got resolved at the time of discharge. She is able to tolerate oral diet well, she is able to ambulate well without any difficulty, she is discharged back to the center in stable condition. She is advised to follow up with her primary care physician in next 1 week of time. DISCHARGE MEDICATIONS: Include: 1. Tylenol 650 mg every 4 hours as needed for pain. 2. Calcium carbonate/Tums 2 to 4 tablets as needed for heartburn. 3. Clindamycin 1 topical twice a day. 4. Prozac 10 mg daily. 5. Ibuprofen 400 mg every 6 hours as needed. 6. Latuda 40 mg daily. 7. Milk of magnesia 2 to 4 tablespoons every 4 hours as needed for nausea. 8. Milk of magnesia 30-60 mL as needed for constipation. 9. Melatonin 9 mg at bedtime. 10.Menthol 1 lozenge every 1 hour as needed for cough. 11.Multivitamin 1 tablet daily. 12.Neosporin 1 application topical twice a day. 13.Risperidone 50 mg intramuscular every 14 days. PHYSICAL EXAMINATION: Vital Signs: On the day of discharge vitals; temperature of 98.1, pulse of 57, blood pressure of 92/40, saturating at 100% on room air. General Appearance: The patient is well oriented to time, place, and person. Follows commands spontaneously. Cardiovascular System: S1, S2 heard with normal intensity. No gallops. Respiratory System: Clear to auscultation bilaterally. No wheeze. No crepitations. Abdomen: Soft. Bowel sounds positive. Nontender. No rigidity. Extremities: No edema in bilateral extremities. Neurology: No gross focal neurological deficits. CONDITION ON ADMISSION: Poor. CONDITION ON DISCHARGE: Stable. Discharged to facility. FOLLOWUP: With primary care physician in next 1 week of time. ACTIVITY: As tolerated. DIET: Regular diet. Spent over 35 minutes of time in evaluating and treating this patient and making discharge plans. [facility] /[phone]
[2016-09-27] MEDS ORDERED: RISPERIDONE MICROSPHERES 50 MG IM SCH (09:00)
== END 2016-09-22 13:36 | DRG 871 ==
LOC: DL.ED 21:00 → UNDOADMIN 09-20 00:50 → DL.MS 09-20 00:50
PROVIDERS: ADMIT Family Medicine; ATTEND Family Medicine
DX: R41.0 Disorientation, unspecified (principal); E87.1 Hypo-osmolality and hyponatremia; R65.10 Systemic inflammatory response syndrome (SIRS) of non-infectious origin without acute organ dysfunction; G93.40 Encephalopathy, unspecified; E87.0 Hyperosmolality and hypernatremia; R44.0 Auditory hallucinations; E87.6 Hypokalemia; K52.9 Noninfective gastroenteritis and colitis, unspecified; E86.0 Dehydration; I95.9 Hypotension, unspecified; F81.9 Developmental disorder of scholastic skills, unspecified; F32.9 Major depressive disorder, single episode, unspecified; Z79.899 Other long term (current) drug therapy; Z87.898 Personal history of other specified conditions; L71.9 Rosacea, unspecified
CPT/HCPCS: 36415 ×2; 70450; 71020; 74177; 80053; 80305; 81001; 81025; 82150; 83605; 83690; 85027; 86140; 93005; 96361; 96365; 99285; G0480; J3480 ×2; J7030; Q9967; 80048; 83735; 84100; 84484; 85025; 87040; 87045; 87046; 87086; 87493; 87899; A9270-GY; C9113; J1650

== ENCOUNTER 2017-03-21 19:03 | Emergency (ER) | payer MEDICAID, OTHER ==
[2017-03-21 19:04] VITALS: BP 115/64
--- NOTE | 2017-03-21 19:07 | EDM.PDOC ---
ED HPI GENERAL MEDICAL PROBLEM - General Chief Complaint: Drug or Alcohol Abuse Stated Complaint: IN WITH [facility] Time Seen by Provider: 03/21/17 19:01 Source of Information: Reports: Patient, Police History Limitations: Reports: No Limitations - History of Present Illness INITIAL COMMENTS - FREE TEXT/NARRATIVE: 26 yo [place] Female brought in by police for alcohol intoxication while at [facility] facility. No PMHx. Past Psych Problem w/ ADHD and depression Onset: Today Onset Date: 03/21/17 Duration: Hour(s): Location: Reports: Generalized Improves with: Reports: None Worsens with: Reports: None Associated Symptoms: Reports: No Other Symptoms - Related Data Allergies Allergy/AdvReac Type Severity Reaction Status Date / Time No Known Allergies Allergy Verified 09/19/16 21:04 Home Meds: Home Meds Clindamycin Phosphate 1 each TP BID 09/19/16 [History] FLUoxetine [PROzac] 10 mg PO DAILY 09/19/16 [History] FLUoxetine [PROzac] 20 mg PO DAILY 09/19/16 [History] Lurasidone [Latuda] 40 mg PO 1700 09/19/16 [History] Melatonin 9 mg PO BEDTIME 09/19/16 [History] Multivitamin [Multivitamins] 1 each PO DAILY 09/19/16 [History] risperiDONE Microspheres [RisperiDAL Consta] 50 mg IM Q14D 09/19/16 [History] Acetaminophen 650 mg PO Q6HR PRN 09/20/16 [History] Calcium Carbonate [Tums Extra Strength] 2 - 4 tab PO Q4H PRN 09/20/16 [History] Ibuprofen 400 mg PO Q6HR PRN 09/20/16 [History] Mag Hydrox/Al Hydrox/Simeth [Liquid Antacid Suspension] 2 - 4 tsp PO Q4H PRN [History] Magnesium Hydroxide [Milk of Magnesia] 30 - 60 ml PO DAILY PRN 09/20/16 [History ] Menthol [[place]] 1 lozenge PO Q1H PRN 09/20/16 [History] Neomycin [place]/Bacitrac Zn/Poly [Neosporin Ointment] 1 applic TOP BID PRN 09/20/16 [History] Past Medical History HEENT History: Reports: Impaired Vision Other HEENT History: wears glasses Neurological History: Reports: Other (See Below) Other Neuro History: confusion, slow speech Psychiatric History: Reports: Anxiety - History Comment History Comment: learning disabilities Social & Family History - Family History Family Medical History: Unobtainable - Tobacco Use Smoking Status *Q: Unknown Ever Smoked Years of Tobacco use: 8 - Caffeine Use Caffeine Use: Reports: Coffee - Alcohol Use Days Per Week of Alcohol Use: 0 - Recreational Drug Use Recreational Drug Use: No ED ROS GENERAL - Review of Systems Review Of Systems: See Below Constitutional: Reports: No Symptoms HEENT: Reports: No Symptoms Respiratory: Reports: No Symptoms Cardiovascular: Reports: No Symptoms Endocrine: Reports: No Symptoms GI/Abdominal: Reports: No Symptoms : Reports: No Symptoms Musculoskeletal: Reports: No Symptoms Skin: Reports: No Symptoms Neurological: Reports: No Symptoms Psychiatric: Reports: Depression Hematologic/Lymphatic: Reports: No Symptoms Immunologic: Reports: No Symptoms ED EXAM, GENERAL - Physical Exam Exam: See Below Exam Limited By: Intoxication General Appearance: Alert Eye Exam: Bilateral Eye: EOMI, PERRL Ears: Normal External Exam Nose: Normal Inspection Throat/Mouth: Normal Inspection Head: Atraumatic Neck: Normal Inspection Respiratory/Chest: No Respiratory Distress Cardiovascular: Normal Peripheral Pulses, Regular Rate, Rhythm GI/Abdominal: Normal Bowel Sounds Back Exam: Normal Inspection Extremities: Normal Inspection, Normal Range of Motion Neurological: Alert, Oriented, CN II-XII Intact Psychiatric: Normal Affect Skin Exam: Warm, Dry Lymphatic: No Adenopathy Departure - Departure Time of Disposition: 19:07 Disposition: Home, Self-Care 01 Condition: Good Clinical Impression: Alcohol intoxication Qualifiers: Complication of substance-induced condition: uncomplicated Qualified Code(s): F10.920 - Alcohol use, unspecified with intoxication, uncomplicated Depression Qualifiers: Depression Type: other depression Qualified Code(s): F32.89 - Other specified depressive episodes - Discharge Information Instructions: Alcohol Intoxication, [id number] Additional Instructions: Stop All Alcohol Use Rest Take Multivitamin Daily Take your prescribed medication only as prescribed MEDICALLY CLEARED FOR DETOX
== END 2017-03-21 19:16 | disposition home or self-care (01) ==
LOC: DL.ED 19:03
DX: F10.120 Alcohol abuse with intoxication, uncomplicated (principal); F32.89 Other specified depressive episodes; F17.210 Nicotine dependence, cigarettes, uncomplicated; Z79.899 Other long term (current) drug therapy; Z88.8 Allergy status to other drugs, medicaments and biological substances
CPT/HCPCS: 99283

== ENCOUNTER 2020-09-12 11:53 | Emergency (ER) | payer MEDICARE, MEDICAID, OTHER ==
--- NOTE | 2020-09-12 12:22 | EDM.PDOC ---
ED HPI GENERAL MEDICAL PROBLEM - General Chief Complaint: General Stated Complaint: BODY PAIN, NUMBNESS HEARING LOSS?? Time Seen by Provider: 09/12/20 12:21 Source of Information: Reports: Patient, Old Records, RN, RN Notes Reviewed History Limitations: Reports: No Limitations - History of Present Illness INITIAL COMMENTS - FREE TEXT/NARRATIVE: Pt presents today with pain in the coccyx that spreads to her joints, tingling and numbness to left thigh and left arm. Pain started today, rates 8/10, slightly relieved with midol that 'doesn't last', tingling and numbness has been present for a couple days. No history of falls or turning wrong. Pt states she has some abdominal cramping, pt has a Mirena IUD present, denies , denies cycles. Pt also states that she feels as if her hearing has diminished significantly in the last week. Pt states some dizziness and flashers in her visual palencia, no change in visual acuity. Onset: Gradual Duration: Day(s): (3), Constant Location: Reports: Head, Face, Neck, Back, Other (Ears) Quality: Reports: Ache, Pressure Severity: Moderate Improves with: Reports: None Worsens with: Reports: None Associated Symptoms: Reports: No Other Symptoms Treatments QUALITY IMPROVEMENT CONSULTANT: Reports: Other (see below) Other Treatments QUALITY IMPROVEMENT CONSULTANT: midol coccyx Pain Score (Numeric/FACES): 8 - Related Data Allergies Allergy/AdvReac Type Severity Reaction Status Date / Time No Known Allergies Allergy Verified 09/12/20 12:17 Home Meds: Home Meds Multivitamin [Multivitamins] 1 each PO DAILY 09/19/16 [History] Acetaminophen 650 mg PO Q6HR PRN 09/20/16 [History] Calcium Carbonate [Tums Extra Strength] 2 - 4 tab PO Q4H PRN 09/20/16 [History] Ibuprofen 400 mg PO Q6HR PRN 09/20/16 [History] Menthol [[place]] 1 lozenge PO Q1H PRN 09/20/16 [History] Neomycin/Bacitracin/Polymyxinb [Neosporin Ointment] 1 applic TOP BID PRN 09/20/16 [History] ARIPiprazole [Abilify] 30 mg PO BEDTIME 09/12/20 [History] Fluticasone Propionate [Flovent Diskus] 50 mcg IH DAILY 09/12/20 [History] Spironolactone [Aldactone] 100 mg PO DAILY 09/12/20 [History] Tretinoin [Retin-A] 1 applic TP BEDTIME 09/12/20 [History] Vortioxetine Hydrobromide [Brintellix] 10 mg PO .NOON 09/12/20 [History] Past Medical History HEENT History: Reports: Impaired Vision Other HEENT History: wears glasses Neurological History: Reports: Other (See Below) Other Neuro History: confusion, slow speech Psychiatric History: Reports: Anxiety - History Comment History Comment: learning disabilities Social & Family History - Family History Family Medical History: Unobtainable - Caffeine Use Caffeine Use: Reports: Coffee - Living Situation & Occupation Living situation: Reports: with Family Occupation: Employed ED ROS GENERAL - Review of Systems Review Of Systems: Comprehensive ROS is negative, except as noted in HPI. ED EXAM, GENERAL - Physical Exam Exam: See Below Exam Limited By: No Limitations General Appearance: Alert, WD/WN, No Apparent Distress, Obese Eye Exam: Bilateral Eye: Normal Inspection Ears: Other (B/L cerumen impaction. S/P irrigation by RN, Left TM dull, otherwise normal. Rt TM dull, erythema, and bulging.) Nose: No Blood, Nasal Drainage Throat/Mouth: Normal Lips, Normal Teeth, Normal Voice, Other (Postnasal drip) Head: Atraumatic, Normocephalic Neck: Normal Inspection, Supple, Non-Tender, Full Range of Motion. No: Lymphadenopathy (L), Lymphadenopathy (R) Cardiovascular: Regular Rate, Rhythm GI/Abdominal: Normal Bowel Sounds, Soft, Non-Tender Back Exam: Other (Tender at lumbosacral jct. with no visible swelling, bruising, erythema, or deformity.). No: Vertebral Tenderness Extremities: Normal Inspection, Normal Range of Motion, Non-Tender, Normal Capillary Refill, No Pedal Edema Neurological: Alert, Oriented, CN II-XII Intact, Normal Cognition, Normal Gait, Normal Reflexes, No Motor/Sensory Deficits Psychiatric: Normal Affect, Normal Mood Skin Exam: Warm, Dry, Intact, Normal Color, No Rash Course - Vital Signs Last Recorded V/S: Last Vital Signs Temp 97.5 F 09/12/20 12:08 Pulse 89 09/12/20 12:08 Resp 18 09/12/20 12:08 BP 128/77 09/12/20 12:08 Pulse Ox 99 09/12/20 12:08 - Orders/Labs/Meds Orders: Active Orders 24 hr Category Date Time Status CULTURE URINE [RM] Stat Lab 09/12/20 12:32 Received STD PANEL 3 [REF] Stat Lab 09/12/20 13:13 Ordered Labs: Laboratory Tests 09/12/20 09/12/20 09/12/20 Range/Units 12:32 12:32 12:41 WBC 10.6 H (5.0-10.0) 10^3/uL RBC 4.50 (4.2-5.4) 10^6/uL Hgb 13.5 (12.0-16.0) g/dL Hct 40.9 (37.0-47.0) % MCV 90.9 (80-100) fL MCH 30.0 (27.0-34.0) pg MCHC 33.0 (33.0-35.0) g/dL Plt Count 461 H D (150-450) 10^3/uL Neut % (Auto) 64.9 (42.2-75.2) % Lymph % (Auto) 29.2 (20.5-50.1) % [place] % (Auto) 4.9 (2-8) % Eos % (Auto) 0.8 L (1.0-3.0) % Baso % (Auto) 0.2 (0.0-1.0) % Sodium (136-145) mmol/L Potassium (3.5-5.1) mmol/L Chloride (98-107) mmol/L Carbon Dioxide (21-32) mmol/L Anion Gap (7-13) mEq/L BUN (7-18) mg/dL Creatinine (0.55-1.02) mg/dL Est Cr Clr Drug Dosing Estimated GFR (MDRD) BUN/Creatinine Ratio (No establ ref range) Glucose (70-99) mg/dL Calcium (8.5-10.1) mg/dL Magnesium (1.8-2.4) mg/dL Total Bilirubin (0.2-1.0) mg/dL AST (15-37) U/L ALT (14-59) U/L Alkaline Phosphatase (46-116) U/L Total Protein (6.4-8.2) g/dL Albumin (3.4-5.0) g/dL Globulin Albumin/Globulin Ratio Urine Color Yellow (YELLOW) Urine Appearance Clear (CLEAR) Urine pH 7.0 (5.0-9.0) Ur Specific [place] 1.010 (1.005-1.030) Urine Protein Negative (NEGATIVE) Urine Glucose (UA) Negative (NEGATIVE) Urine Ketones Negative (NEGATIVE) Urine Occult Blood Negative (NEGATIVE) Urine Nitrite Negative (NEGATIVE) Urine Bilirubin Negative (NEGATIVE) Urine Urobilinogen 0.2 (0.2-1.0) mg/dL Ur Leukocyte Esterase Trace H (NEGATIVE) Urine RBC 0-5 /HPF Urine WBC 0-5 (0-5/HPF) /HPF Ur Epithelial Cells Moderate H (NOT SEEN) /HPF Urine Bacteria Moderate H (0-FEW/HPF) /HPF Urine HCG, Qual Negative 09/12/20 Range/Units 12:41 WBC (5.0-10.0) 10^3/uL RBC (4.2-5.4) 10^6/uL Hgb (12.0-16.0) g/dL Hct (37.0-47.0) % MCV (80-100) fL MCH (27.0-34.0) pg MCHC (33.0-35.0) g/dL Plt Count (150-450) 10^3/uL Neut % (Auto) (42.2-75.2) % Lymph % (Auto) (20.5-50.1) % [place] % (Auto) (2-8) % Eos % (Auto) (1.0-3.0) % Baso % (Auto) (0.0-1.0) % Sodium 138 (136-145) mmol/L Potassium 3.5 (3.5-5.1) mmol/L Chloride 102 (98-107) mmol/L Carbon Dioxide 22 (21-32) mmol/L Anion Gap 17.5 H (7-13) mEq/L BUN 6 L (7-18) mg/dL Creatinine 0.56 (0.55-1.02) mg/dL Est Cr Clr Drug Dosing TNP Estimated GFR (MDRD) > 60 BUN/Creatinine Ratio 10.7 (No establ ref range) Glucose 90 (70-99) mg/dL Calcium 8.7 (8.5-10.1) mg/dL Magnesium 2.1 (1.8-2.4) mg/dL Total Bilirubin 0.4 (0.2-1.0) mg/dL AST 26 (15-37) U/L ALT 31 (14-59) U/L Alkaline Phosphatase 153 H (46-116) U/L Total Protein 7.9 (6.4-8.2) g/dL Albumin 4.1 (3.4-5.0) g/dL Globulin 3.8 Albumin/Globulin Ratio 1.1 Urine Color (YELLOW) Urine Appearance (CLEAR) Urine pH (5.0-9.0) Ur Specific [place] (1.005-1.030) Urine Protein (NEGATIVE) Urine Glucose (UA) (NEGATIVE) Urine Ketones (NEGATIVE) Urine Occult Blood (NEGATIVE) Urine Nitrite (NEGATIVE) Urine Bilirubin (NEGATIVE) Urine Urobilinogen (0.2-1.0) mg/dL Ur Leukocyte Esterase (NEGATIVE) Urine RBC /HPF Urine WBC (0-5/HPF) /HPF Ur Epithelial Cells (NOT SEEN) /HPF Urine Bacteria (0-FEW/HPF) /HPF Urine HCG, Qual Departure - Departure Time of Disposition: 13:15 Disposition: Home, Self-Care 01 Condition: Good Clinical Impression: Impacted cerumen of both ears, Sacroiliac pain, Cervical radiculopathy Otitis media Qualifiers: Otitis media type: suppurative Chronicity: acute Laterality: right Recurrence: non-recurrent Spontaneous tympanic membrane rupture: without spontaneous rupture Qualified Code(s): H66.001 - Acute suppurative otitis media without spontaneous rupture of ear drum, right ear - Discharge Information *PRESCRIPTION DRUG MONITORING PROGRAM REVIEWED*: Not Applicable *COPY OF PRESCRIPTION DRUG MONITORING REPORT IN PATIENT BENNY: Not Applicable Instructions: Earwax Buildup, Adult, Otitis Media, Adult, [id number], Sacroiliac Joint Dysfunction, Cervical Radiculopathy, [id number] Forms: ED Department Discharge Additional Instructions: Rx: Cipro 500mg Use over the counter Ibuprofen 200mg: Take 3 tablets by mouth every six hours with food, as needed for back or neck pain. Follow up in clinic in one week for recheck. Sepsis Event Note (ED) - Evaluation Sepsis Screening Result: No Definite Risk - Focused Exam Vital Signs: Vital Signs Temp Pulse Resp BP Pulse Ox 09/12/20 12:08 97.5 F 89 18 128/77 99 - My Orders Last 24 Hours: My Active Orders 09/12/20 12:32 CULTURE URINE [RM] Stat 09/12/20 13:13 STD PANEL 3 [REF] Stat - Assessment/Plan Last 24 Hours: My Active Orders 09/12/20 12:32 CULTURE URINE [RM] Stat 09/12/20 13:13 STD PANEL 3 [REF] Stat
[2020-09-12 13:14] LABS: ANION GAP 17.5 mEq/L (7-13); CHLORIDE,CL 102 mmol/L (98-107); SODIUM,NA 138 mmol/L (136-145)
--- NOTE | 2020-09-12 13:25 | CR ---
PROCEDURE INFORMATION: Exam: XR Cervical Spine Exam date and time: 09/12/2020 12:37 PM Age: 30 years old Clinical indication: Other: Left arm tingling; Neck pain; Additional info: Neck pain, left arm tingling, no injury TECHNIQUE: Imaging protocol: XR of the cervical spine. Views: 2 or 3 views. COMPARISON: No relevant prior studies available. FINDINGS: Bones/joints: There is normal alignment throughout the cervical spine. There is slight reversal of the normal cervical lordosis. There is preservation of the vertebral body heights. No acute fracture is identified. The facet joints are normally aligned and articulated. The disc heights are preserved. Soft tissues: The prevertebral soft tissue thickness is normal. Lungs: The lung apices are clear. IMPRESSION: Slight reversal of the normal cervical lordosis can be related to positioning or muscle spasm. The exam is otherwise normal.
--- NOTE | 2020-09-12 13:27 | CR ---
PROCEDURE INFORMATION: Exam: XR Lumbosacral Spine Exam date and time: 09/12/2020 12:46 PM Age: 30 years old Clinical indication: Low back pain; Additional info: Low lumbar sacral pain, no injury TECHNIQUE: Imaging protocol: XR of the lumbosacral spine. Views: 2 or 3 views. COMPARISON: No relevant prior studies available. FINDINGS: Bones/joints: There are 6 [id number] lumbar vertebral bodies, a normal variant. Alignment is normal throughout. There is preservation of the vertebral body heights. No acute fracture is identified. There is very early degenerative disease with small osteophytes arising from the left side of the L4 and L5 superior endplates. There is mild disc space foreshortening at L6-S1. The facet joints are normally aligned articulated. The sacroiliac joints are symmetric. Soft tissues: The paravertebral soft tissues are within normal limits. Organs: An IUD overlies the central pelvis. IMPRESSION: Minimal early degenerative disease. Otherwise normal exam. If further evaluation of the intervertebral discs and spinal canal contents is clinically warranted, consider MRI.
[2020-09-12 13:31] VITALS: BP 128/77; PULSE 89
[2020-09-16 11:46] LABS: C.TRACHOMATIS BY TMA Negative (Negative); N.GONORRHOEAE BY TMA Negative (Negative)
== END 2020-09-12 13:27 | disposition home or self-care (01) ==
LOC: DL.ED 11:53
DX: H66.001 Acute suppurative otitis media without spontaneous rupture of ear drum, right ear (principal); H61.23 Impacted cerumen, bilateral; M54.12 Radiculopathy, cervical region; M53.3 Sacrococcygeal disorders, not elsewhere classified; Z79.899 Other long term (current) drug therapy
CPT/HCPCS: 36415; 69209; 72040; 72100; 80053; 81001; 81025; 83735; 85025; 87086; 87088; 87186; 87491; 87563; 87591; 99284; 99284-25